=== PATIENT | female | born 1935 | race Caucasian/White ===

== ENCOUNTER 2025-02-28 14:15 | Outpatient (AMB) | payer MEDICARE, OTHER, SELFPAY ==
--- NOTE | 2025-02-28 14:17 | AM.OFFWIN_ITS ---
Intake Vital Signs 02/28/25 14:18 Weight 127 lb BP 130/78 Blood Pressure Location Lt brachial Pulse 69 Pulse Source Pulse Oximeter Pulse Oximetry (%) 94 Oxygen Delivery Method Room Air Intake Visit Reasons: EP-b/l hands pain, rt foot mid toe Intake Note: Patient here for bilat hand/finger pain that has been present for a couple of weeks. Patient Tobacco Use Status: Never used Tobacco Allergies levofloxacin Adverse Reaction (Mild, Verified 02/28/25 14:20) joint pain HPI HPI Comments History of Present Illness Details History of Present Illness - The patient is an 89-year-old female p resenting with pain and swelling in mutliple fingers of both hands and right foot has one toe wiht joint pain. Patient thinks this is possibly indicative of gout. Initially noted during a vacation, the pain was localized to one toe but improved spontaneously after three days. She continues to experience mild toe pain without associated redness or swelling. - She inquires about uric acid levels as a diagnostic consideration for gout and reports taking naproxen daily which provides symptomatic relief. She researched on the internet and has a strong suspicion for gout. - Today, she denies significantly red, s wollen joints. - She has been taking Naproxen ATC and t ook it today. - The patient mentions her fingers appea r mildly swollen intermittently but without severe discomfort or acute impairment, and she seeks clarification on whether these symptoms suggest chronic gout or arthritis. Physical Exam General: Cooperative, healthy appearing, comfortable, no acute distress and well developed Orientation: Patient oriented x3 Limitations: No limitations Head: Normal to inspection Ears: Hearing grossly normal bilaterally Nose: Normal External nose present Face and sinus: Normal facial exam Eyes: Appearance normal, both eyes and all related structures Neck: Normal visual inspection and Yes full ROM Respiratory: Normal respiratory effort and able to speak in complete sentences. Skin: No rashes or lesions noted Neuro: Patient oriented x3 Extremities: Heberdon's and bouchards nodes on multiple bilateral fingers; no erythema or warmth noted, ROM without pain PFSH Social History Patient Tobacco Use Status: Never used Tobacco Review of Systems Const All systems reviewed & are unremarkable except as noted in HPI and below Physical Exam Vital Signs: Last Vital Signs Pulse 69 02/28/25 14:18 BP 130/78 02/28/25 14:18 Pulse Ox 94 02/28/25 14:18 Oxygen Delivery Method Room Air 02/28/25 14:18 Assessment & Plan Assessment & Plan (1) Joint pain: Code(s): M25.50 - Pain in unspecified joint Qualifiers: Joint pain location: hand Laterality: bilateral Qualified Code(s): M25.541 - Pain in joints of right hand; M25.542 - Pain in joints of left hand Plan: Considering the present symptomatology, osteoarthritis is suspected more than gout, although uric acid testing will confirm or eliminate gout as a possibility as patient is very concerned and this will put her mind at ease. Patient has labs scheduled for next week so she will get this test done with those tests. The patient reports consistent improvement with daily naproxen use; therefore, it's recommended that her naproxen usage stop and transitions to as-needed, post-evaluation of symptoms after a trial of discontinuation. The lack of classic gout symptoms diminishes the likelihood of acute gout. Patient was informed and verbally consented to the use of an ambient scribe for clinic note documentation during this visit. Orders: Orders Uric Acid Today M25.50 - Pain in unspecified joint Coding Level of Care Code Est Pt Level 3 (98464) Diagnoses Arthralgia of both hands M25.541; M25.542 Joint pain location: hand Laterality: bilateral
[2025-02-28 14:18] VITALS: BP 130/78; PULSE 69; O2SAT 94
--- OUTSIDE RECORDS SUMMARY | 2025-02-28 17:06 | XMS_ITS | Continuity of Care Document ---
Author Organization [place] - [facility], [facility] Address [address] [place] [address] Assessment Encounter Date Assessment Date Assessment LastModified by Organization Details LastModified Time 02/28/2025 02/28/2025 Cerumen removed bilaterally, which patient tolerated well. Otologic exam otherwise unremarkable. Patient complains of hearing loss. Otologic exam unrevealing. Audiometric testing obtained today and reviewed with patient demonstrates bilateral neurosensory hearing loss, affecting the frequencies of human speech, with resultant decreased speech discrimination. Reviewed with patient hearing loss is amenable to hearing aids; recommend continued binaural amplification with updated settings. 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 Recommend annual audiometric testing, sooner with perceived change in hearing or lack of improvement with new hearing aid settings. All questions were answered. [email or web address] Not available 02/28/2025 11:48:41 Plan of Treatment Reminders Order Date Submit Date Provider Last Modified By Organization Details Last Modified Time Details Appointments Hearing Test 2024 11:00A M Hearing Test Not available Not available Not available Hearing Test 2024 11:14A M GABRIELA WALSH, JACK Not available Not available Not available Establish ed 15 2024 11:30A M YVETTE PINEDA PA-C Not available Not available Not available Establish ed 15 2024 02:00P M GUILLERMO DAUGHERTY PA-C Not available Not available Not available Lab None recorded. Referral None recorded. Procedures None recorded. Surgeries None recorded. Imaging None recorded. Medication Orders None recorded. Patient TargetsNo targets recorded. Patient InstructionsNo instructions recorded. Reason for Referral None Reported. Results Created Date Observation Date Name Description Value Unit Range Abnormal Flag Note LastModifiedBy Organization Detail LastModifiedTime 02/29/20 25 audio gram No observ ation record ed. BARCODE Not Available 2024 13:16:30 Result Notes None recorded. Problems Name Problem SNOMED Code Status Onset Date Resolution Date Notes Provider Name and Address Organization Details Recorded Time Dysphonia 48942219 Active 2021 Hoarsene ss; Note: Date Diagnose d: 2 9:47 AM (R49.0) Not Available [facility] 4 03:09:54 Chronic laryngiti s 00132261 Active 2021 Chronic laryngit is; Note: Date Diagnose d: 2 9:47 AM (J37.0) Not Available [facility] 4 03:09:53 Sensorine ural hearing loss of bilateral ears 926507848 Active 2024 Margarita rivera [place] - [facility] 5 11:15:11 Impacted cerumen of bilateral ears 050685200628 9108 Active 2024 YVETTE PINEDA PA-C [address] [place] [address], [address] , [facility] - [facility] 5 11:47:32 Problem Notes None recorded. Procedures Surgical History Date Name Laterality Status Provider Name and Address Organization Details Recorded Time 5 Comp Audio with Tymps (91022 & 59385) completed Margarita Richter [place] - [facility] 02/28/2025 11:15:10 5 Cerumen removal without microscope bilat completed YVETTE PINEDA PA-C [address] [place] [address], [place], [address], [facility] - [facility] 02/28/2025 11:36:03 Imaging Results None recorded. Procedure Notes None recorded. Medical Equipment None Reported. Allergies Allergen ID Allergen Name Allergen Category Reaction Reaction Severity Criticality Documentation Date Start Date Code Code System Note Provider Name and Address Organization Details Recorded Time 871116 levofloxa jean-claude medicatio n other Not available Not available 03/21/2024 82548 RxNorm React ion: Unkno wn; Not Available [facility] 4 01:19:29 Medications Name Sig Start Date Stop Date Status Note LastModified by Organization Details LastModified Time losartan 50 mg tablet TAKE 1 TABLET BY MOUTH EVERY DAY active Not Available Not Available No t Available azithromyc in 250 mg tablet active Medicatio n ID: [id number] Br and Name: azithromy jean-claude Send Method: E-Prescri bed Subs Allowed: subs OK Medica tionGener icName: azithromy jean-claude Not Available Not Available Not Available alendronat e 70 mg tablet active Medicatio n ID: [id number] Br and Name: alendrona te Send Method: E-Prescri bed Subs Allowed: subs OK Medica tionGener icName: alendrona te Not Available Not Available Not Available amoxicilli n 500 mg tablet active Medicatio n ID: [id number] Br and Name: amoxicill in Send Method: E-Prescri bed Subs Allowed: subs OK Medica tionGener icName: amoxicill in Not Available Not Available Not Available losartan 50 mg-hydroch lorothiazi de 12.5 mg tablet active Medicatio n ID: [id number] Br and Name: losartan- hydrochlo rothiazid e Send Method: E-Prescri bed Subs Allowed: subs OK Medica tionGener icName: losartan- hydrochlo rothiazid e Not Available Not Available Not Available neomycin 3.5 mg/g-polym yxin B 10,000 unit/g-dex ameth 0.1 % eye oint APPLY TO AFFECTED EYES EVERY NIGHT AT BEDITME active Not Available Not Available No t Available Restasis 0.05 % eye drops in a dropperett e INSTILL 1 DROP INTO BOTH EYES TWICE A DAY active Not Available Not Available No t Available Vitals Date Recorded Body height Body mass index (BMI) Body weight Provider Name and Address Organization Details Last Updated DateTime 02/28/2025 152.4 cm 23.8 kg/m2 45220.27 g Johana Estevez [place] - [facility] 02/28/2025 11:23:18 Social History None recorded. Functional Status None recorded. Mental Status None recorded. Family History Nothing Reported. Medical History No medical history recorded. Gynecological HistoryNo gynecological history recorded. Obstetrics History GPAL:G 0 P 0 0 0 0 Past Encounters Encounter ID Performer Location Encounter Start Date Encounter Closed Date Diagnosis/Indication Diagnosis SNOMED-CT Code Diagnosis ICD10 Code Diagnosis Note [id number] ARELIS RIVERA MD [facility] of [address] [address] 02/28/2025 10:37:07 02/28/2025 11:39:38 Impacted cerumen of bilateral ears 3517621887 801281 H61.23 Sensorineu ral hearing loss of bilateral ears 283635394 H90.3 [id number] JACK THAYER [facility] of [facility] [address] [place] [address] 02/28/2025 11:14:22 02/28/2025 11:16:28 Sensorineural hearing loss of bilateral ears 855298062 H90.3 [facility]{{Norm al Normal through 2 kHz Mild* Moderate M oderately- severe Sev ere Profou nd}} {{hearing hearing. s loping to a mild slopi ng to a moderate s loping to moderately severe* sl oping to severe slo ping to profound f lat high frequency low frequency mid frequency cookie bite arias curve}} {{with sen sorineural hearing loss with* cond uctive hearing loss with mixed hearing loss with}} {{excellen t* good fa ir poor no measurable }} word recognitio n.Left ear:{{Norm al Normal through 2 kHz Mild* Moderate M oderately- severe Sev ere Profou nd}} {{hearing hearing. s loping to a mild slopi ng to a moderate s loping to moderately severe* sl oping to severe slo ping to profound f lat high frequency low frequency mid frequency cookie bite arias curve}} {{with sen sorineural hearing loss with* cond uctive hearing loss with mixed hearing loss with}} {{excellen t* good fa ir poor no measurable }} word recognitio n. Tympanomet ry:Right Ear:{{Type A* Type A with rounded peak Type A with double peak Type As Type As with rounded peak Type Ad Type C Type C, shallow & rounded peak Type B Type B with large volume Cou ld not maintain a hermetic seal}}Left Ear:{{Type A Type A with rounded peak Type A with double peak Type As Type As with rounded peak Type Ad Type C* Type C, shallow & rounded peak Type B Type B with large volume Cou ld not maintain a hermetic seal}} Health Concerns Section Related Observation LastModified by Organization Detai ls LastModified Time None Recorded Concern Status LastModified by Organization Details LastModified Time None Recorded Payers Encounter Date Sequence Insurance Name Policy Number Policy Virgen Covered Member ID Virgen Member ID Guarantor Name 02/28/2025 1 [place] [facility] Cinda Smith Tha [id number] 4 Cinda Almazan 02/28/2025 2 [facility] INDEMNITY PLAN - [facility] [id number] Cinda Almazan [id number] Cinda Almazan Notes Date Note Type Note Provider Name and Address Organization Details Recorded Time 02/28/2025 text/html 89 year old shanna antony presents for evaluation of the ears and hearing. Hearing seems to have changed. Hearing aids don't help as much as they used to. They are about a year old, replacement for a lost pair. She does not think she has had audiometric testing since being fitted for them 7 years ago. There is no otalgia nor otorrhea ARELIS RIVERA MD [address] [place] [address], [address], [place] - [facility] 02/28/2025 11:54:27 OBGyn Episode No OBEpisode recorded.
--- OUTSIDE RECORDS SUMMARY | 2025-02-28 17:07 | XMS_ITS | Continuity of Care Document ---
Author Organization [place] - [facility], [facility] Address [address] [place] [address] Assessment Encounter Date Assessment Date Assessment LastModified by Organization Details LastModified Time 02/28/2025 02/28/2025 Follow up with referring provider. [email or web address] Not available 02/28/2025 11:15:10 Plan of Treatment Reminders Order Date Submit Date Provider Last Modified By Organization Details Last Modified Time Details Appointments Hearing Test 2024 11:00A M Hearing Test Not available Not available Not available Hearing Test 2024 11:14A M JACK THAYER Not available Not available Not available Establish [...] and Address Organization Details Recorded Time Dysphonia 27302651 Active 2021 Hoarsene ss; Note: Date Diagnose d: 2 9:47 AM (R49.0) Not Available [facility] 4 03:09:54 Chronic laryngiti s 17275765 Active 2021 Chronic laryngit is; Note: Date Diagnose d: 2 9:47 AM (J37.0) Not Available [facility] 4 03:09:53 Sensorine ural hearing loss of bilateral ears 236627247 Active 2024 Margarita rivera [place] - [facility] 5 11:15:11 Impacted cerumen of bilateral ears 014880224249 9108 Active 2024 YVETTE PINEDA PA-C [address] [facility],[place] [address], [place], [address] , [facility] - [facility] [place] 5 11:47:32 Problem Notes None recorded. Procedures Surgical History Date Name Laterality Status Provider Name and Address Organization Details Recorded Time 5 Comp Audio with Tymps (12829 & 78920) completed Margarita Richter [facility] 02/28/2025 11:15:10 5 Cerumen removal without microscope bilat completed YVETTE PINEDA PA-C [address] [facility],[place] [address], [place], [address], [facility] 02/28/2025 11:36:03 Imaging Results None recorded. Procedure Notes None recorded. Medical Equipment None Reported. Allergies Allergen ID Allergen Name Allergen Category Reaction Reaction Severity Criticality Documentation Date Start Date Code Code System Note Provider Name and Address Organization Details Recorded Time 530342 levofloxa jean-claude medicatio n other Not available Not available 03/21/2024 76782 RxNorm React ion: Unkno wn; Not Available [facility] 4 01:19:29 Medications Name Sig Start Date Stop Date Status Note LastModified by Organization Details LastModified Time losartan 50 mg tablet TAKE 1 TABLET BY MOUTH EVERY DAY active Not Available Not Available No t Available azithromyc in 250 mg tablet active Medicatio n ID: [id number] Br and Name: azithromy jean-claude Send Method: E-Prescri bed Subs Allowed: subs OK Medica tionGener icName: azithromy jean-claude Not Available Not Available Not Available alendronat e 70 mg tablet active Medicatio n ID: [id number] Br and Name: alendrona te Send Method: E-Prescri bed Subs Allowed: subs OK Medica tionGener icName: alendrona te Not Available Not Available Not Available amoxicilli n 500 mg tablet active Medicatio n ID: [id number] Br and Name: amoxicill in Send Method: E-Prescri bed Subs Allowed: subs OK Medica tionGener icName: amoxicill in Not Available Not Available Not Available losartan 50 mg-hydroch lorothiazi de 12.5 mg tablet active Medicatio n ID: [id number] Br and Name: losartan- hydrochlo rothiazid e [...] Updated DateTime 02/28/2025 152.4 cm 23.8 kg/m2 40871.27 g Johana Estevez [place] - [facility] 02/28/2025 11:23:18 Social History None recorded. Functional Status None recorded. Mental Status None recorded. Family History Nothing Reported. Medical History No medical history recorded. Gynecological HistoryNo gynecological history recorded. Obstetrics History GPAL:G 0 P 0 0 0 0 Past Encounters Encounter ID Performer Location Encounter Start Date Encounter Closed Date Diagnosis/Indication Diagnosis SNOMED-CT Code Diagnosis ICD10 Code Diagnosis Note [id number] ARELIS RIVERA MD [facility] of [address] [address] 02/28/2025 10:37:07 02/28/2025 11:39:38 Impacted cerumen of bilateral ears 9523814451 226728 H61.23 Sensorineu ral hearing loss of bilateral ears 885865560 H90.3 [id number] JACK THAYER [facility] of [address] [place] [address] 02/28/2025 11:14:22 02/28/2025 11:16:28 Sensorineural hearing loss of bilateral ears 865967560 H90.3 Audiologic al evaluation results:Ri t ear:{{Norm al Normal through 2 kHz Mild* [...] Concerns Section Related Observation LastModified by Organization Damion ls LastModified Time None Recorded Concern Status LastModified by Organization Details LastModified Time None Recorded Payers Encounter Date Sequence Insurance Name Policy Number Policy Virgen Covered Member ID Virgen Member ID Guarantor Name 02/28/2025 1 [place] [employer] Cinda Almazan [id number] 4 Cinda Almazan 02/28/2025 2 [facility] [id number] Cinda Almazan [id number] Cinda Smith Tha Notes Date Note Type Note Provider Name [...] no otalgia nor otorrhea ARELIS RIVERA MD [address] [place] [address], [place], [address], [place] - [facility] 02/28/2025 11:54:27 OBGyn Episode No OBEpisode recorded.
--- OUTSIDE RECORDS SUMMARY | 2025-02-28 17:07 | XMS_ITS | Data Portability ---
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 Recommend annual audiometric testing, sooner with perceived change in hearing or lack of improvement with new hearing aid settings. All questions were answered. [email or web address] Not available 02/28/2025 11:48:41 02/28/2025 02/28/2025 Follow up with referring provider. [...] and Address Organization Details Recorded Time Dysphonia 75208796 Active 2021 Hoarsene ss; Note: Date Diagnose d: 2 9:47 AM (R49.0) Not Available [facility] 4 03:09:54 Chronic laryngiti s 41550157 Active 2021 Chronic laryngit is; Note: Date Diagnose d: 2 9:47 AM (J37.0) Not Available [facility] 4 03:09:53 Sensorine ural hearing loss of bilateral ears 240267620 Active 2024 Margarita rivera [place] - [facility] [place] 5 11:15:11 Impacted cerumen of bilateral ears 704277131487 9108 Active 2024 YVETTE PINEDA PA-C [address] [place] [address], [place], [address] , [facility] - [facility] 5 11:47:32 Problem Notes None recorded. Procedures Surgical History Date Name Laterality Status Provider Name and Address Organization Details Recorded Time 5 Comp Audio with Tymps (54446 & 64163) completed Margarita Richter [place] - [facility] 02/28/2025 11:15:10 Cerumen removal without microscope bilat completed YVETTE PINEDA PA-C [address] [place] [address],[place] [address], [place], [address], [facility] - [facility] 02/28/2025 11:36:03 Imaging Results Imaging Date Name Status LastModified by Organiz ation Details LastModified Time 02/28/2025 audiogram completed BARCODE Information no t available 02/28/2025 13:16:30 Procedure Notes None recorded. Medical Equipment None Reported. Allergies Allergen ID Allergen Name Allergen Category Reaction Reaction Severity Criticality Documentation Date Start Date Code Code System Note Provider Name and Address Organization Details Recorded Time 321819 levofloxa jean-claude medicatio n other Not available Not available 03/21/2024 58479 RxNorm React ion: Unkno wn; Not Available [facility] 4 01:19:29 Medications Name Sig Start Date Stop Date Status Note LastModified by Organization Details LastModified Time losartan 50 mg tablet TAKE 1 TABLET BY MOUTH EVERY DAY active Not Available Not Available No t Available azithromyc in 250 mg tablet active Medicatio n ID: [id number] Br and Name: azithromy jean-claude Send Method: E-Prescri bed Subs Allowed: subs OK Medica tionGener icName: azithromy jean-claude Not Available Not Available Not Available alendronat e 70 mg tablet active Medicatio n ID: [id number] Br and Name: alendrona te Send Method: E-Prescri bed Subs Allowed: subs OK Medica tionGener icName: alendrona te Not Available Not Available Not Available amoxicilli n 500 mg tablet active Medicatio n ID: [id number] Br and Name: amoxicill in Send Method: E-Prescri bed Subs Allowed: subs OK Medica tionGener icName: amoxicill in Not Available Not Available Not Available losartan 50 mg-hydroch lorothiazi de 12.5 mg tablet active Medicatio n ID: [id number] Br and Name: losartan- hydrochlo rothiazid e [...] Updated DateTime 02/28/2025 152.4 cm 23.8 kg/m2 21044.27 g Johana Estevez [place] - [facility] 02/28/2025 11:23:18 Social History None recorded. Functional Status None recorded. Mental Status None recorded. Family History Nothing Reported. Medical History No medical history recorded. Gynecological HistoryNo gynecological history recorded. Obstetrics History GPAL:G 0 P 0 0 0 0 Past Encounters Encounter ID Performer Location Encounter Start Date Encounter Closed Date Diagnosis/Indication Diagnosis SNOMED-CT Code Diagnosis ICD10 Code Diagnosis Note [id number] ARELIS RIVERA MD [facility] of [address] [address] 02/28/2025 10:37:07 02/28/2025 11:39:38 Impacted cerumen of bilateral ears 5820015547 060118 H61.23 Sensorineu ral hearing loss of bilateral ears 590684364 H90.3 [id number] JACK THAYER [facility] of [address] [address] 02/28/2025 11:14:22 02/28/2025 11:16:28 Sensorineural hearing loss of bilateral ears 727211883 H90.3 Audiologic al evaluation results:Ri ght ear:{{Norm al Normal through 2 kHz Mild* [...] by Organization Details LastModified Time None Recorded Advance Directives Directive None Recorded Payers Encounter Date Sequence Insurance Name Policy Number Policy Virgen Covered Member ID Virgen Member ID Guarantor Name 02/28/2025 1 [place] [facility] Cinda Almazan [id number] Cinda Almazan 02/28/2025 2 [employer] [id number] Cinda Almazan [id number] Cinda Almazan 02/28/2025 1 [place] [facility] Cinda S Tha [id number] 4 Cinda S Tha 02/28/2025 2 [facility] INDEMNITY PLAN - UNICARE [id number] Cinda S Tha [id number] Cinda Almazan Notes Date Note Type Note [...] no otalgia nor otorrhea ARELIS RIVERA MD [address] [place] [address], [phone], [facility] - [facility] 02/28/2025 11:54:27 OBGyn Episode No OBEpisode recorded.
--- OUTSIDE RECORDS SUMMARY | 2025-02-28 17:07 | XMS_ITS | Clinical Summary ---
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 Role Phone Unavailable Primary Care Provider Unavailabl e Social History Tobacco Use Types Packs/Day Years Used Date Smoking Tobacco: Never Assessed Comments Unknown Sex and Gender Information Value Date Recorded Sex Assigned at Not on file Legal Sex Female 7:15 PM EST Gender Identity Not on file Sexual Orientation Not on file Plan of Treatment Health Maintenance Due Date Last Done Comments Pneumococcal Vaccine: 50+ Years (1 of 1 - PCV) 1985 Zoster Vaccines (1 of 2) 1985 RSV Immunization Adult Patients (1 - 1-dose 75+ series) 2010 Cholesterol Screening (Lipid Panel) 10/10/2022 Depression Screening 10/10/2022 Falls Risk Assessment 10/10/2022 Medicare Annual Wellness Visit 10/10/2022 Osteoporosis Screening (Bone Density Screening) 10/10/2022 Social Influencers of Health Screening 10/10/2022 COVID-19 Vaccine ( - season) 2024 Influenza Vaccine (Season Ended) 2025 08/31/2022, 08/11/2021, 08/13/2020, Additional history exists DTaP,Tdap,and Td Vaccines (2 - Td or Tdap) 05/02/2028 05/02/2018 HIB Vaccines Aged Out No longer eligi ble based on patient's age to complete this topic HPV Vaccines Aged Out No longer eligi ble based on patient's age to complete this topic Hepatitis A Vaccines Aged Out No long er eligible based on patient's age to complete this topic Hepatitis B Vaccines Aged Out No long er eligible based on patient's age to complete this topic IPV Vaccines Aged Out No longer eligi ble based on patient's age to complete this topic MMR Vaccines Aged Out No longer eligi ble based on patient's age to complete this topic Meningococcal ACWY Vaccine Aged Out N o longer eligible based on patient's age to complete this topic Meningococcal B Vaccine Aged Out No l onger eligible based on patient's age to complete this topic RSV Immunization Patients Under 20 months Aged Out No longer eligible based on patient's age to complete this topic Varicella Vaccines Aged Out No longer eligible based on patient's age to complete this topic
== END 2025-02-28 15:46 | disposition home or self-care (01) ==
PROVIDERS: Visit Provider Physician Assistant
DX: M25.541 Pain in joints of right hand (principal); M25.542 Pain in joints of left hand

== ENCOUNTER → 2025-02-28 14:15 | Outpatient (BNVA) | payer MEDICARE, OTHER, SELFPAY | PROVIDERS: Visit Provider Physician Assistant | DX: M25.541 Pain in joints of right hand (principal); M25.542 Pain in joints of left hand | CPT/HCPCS: 99212 ==

== ENCOUNTER 2025-03-15 10:45 | Outpatient (AMB) | payer MEDICARE, OTHER, SELFPAY ==
--- NOTE | 2025-03-15 10:59 | MHC.PC.OV ---
Vital Signs 03/15/25 11:03 Height 4 ft 11.8 in Weight 121 lb BMI 23.8 BP 136/76 Blood Pressure Location Lt brachial Position Sitting Respiration 18 Pulse 99 Pulse Source Pulse Oximeter Pulse Oximetry (%) 99 Oxygen Delivery Method Room Air Intake Visit Reasons: New patient visit ok per Dr. Mcnulty Intake Note: Pt is here today for New patient visit. Allergies levofloxacin Adverse Reaction (Mild, Verified 03/15/25 11:06) joint pain Medication List - Last Reconciled 03/15/25 by Dary Mcnulty MD cyclosporine 0.05% (Restasis) drps ophthalmic (eye) losartan 50 mg PO DAILY Tobacco use date assessed: 03/15/25 Fall risk assessment: No Falls in past year Last assessed Fall Risk: 03/15/25 Dental Screening Dental Screen Date: 03/15/25 Did you have a dental visit in the last 12 months?: Yes Did you have a dental problem in the last 6 months where you did not have access to dental care?: No Was dental information given to patient?: Patient has dentist HPI New patient visit ok per Dr. 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 Past medical history includes hypertension controlled on losartan. Patient lives independently in a house. She is physically active taking care of her house and yard [facility] Medical History (Updated 03/15/25 @ 14:59 by Dary Mcnulty MD) Osteoporosis HTN (hypertension) Hyperlipidemia Surgical History (Updated 03/15/25 @ 11:15 by HANANE Owen) H/O colonoscopy Hx of external ear surgery History of bunionectomy History of eyelid surgery History of cystocele repair Hx of cataract surgery History of bilateral knee replacement Family History (Updated 03/15/25 @ 11:14 by HANANE Owen) Father Diabetes Hypertension Mother Hypertension Social History (Updated 03/15/25 @ 11:27 by Dary Mcnulty MD) Household Members Other:: , lives alone, son in [facility], son in [place], Housing: House Patient Tobacco Use Status: Never used Tobacco e-Cigarette/Vaping Use: Never Used service: No Current occupational status: retired Cognitive needs: No Hearing needs: No Vision needs: No Questionnaire PHQ-9 Over the last 2 weeks, how often have you been bothered by any of the following problems? 1. Little interest or pleasure in doing things: not at all 2. Feeling down, depressed, or hopeless: not at all 3. Trouble falling or staying asleep, or sleeping too much: not at all 4. Feeling tired or having little energy: not at all 5. Poor appetite or overeating: not at all 6. Feeling bad about yourself - or that you are a failure or have let yourself or your family down: not at all 7. Trouble concentrating on things, such as reading the newspaper or watching television: not at all 8. Moving or speaking so slowly that other people could have noticed. Or the opposite - being so fidgety or restless that you have been moving around a lot more than usual: not at all 9. Thoughts that you would be better off or of hurting yourself in some way: not at all Total score: 0 Depression Screening Interpretation: Negative Depression Screening Done: Yes 11151 - PHQ-9 Billing: Yes Source: Developed by Drs. Viet Hogue, Beatrice Benitez, Linus Patel and colleagues, with an educational charbel from [employer]. Thrive Questionnaire Date Thrive assessed: 03/15/25 I am a: Patient What is your living situation today?: I have a steady place to live Within the past 12 months, did the food you bought not last and you didn't have the money to get more?: Never true Within the past 12 months, did you worry whether your food would run out before you got money to buy more?: Never true Do you have trouble paying for medicines?: No Do you have trouble getting transportation to medical appointments?: No Do you have trouble paying your heating and electricity bill?: No Do you have trouble taking care of your child, family member or friend?: No Do you have trouble with day-to-day activities such as bathing, preparing meals, shopping, managing finances, etc.?: No Are you currently unemployed and looking for a job?: No Are you interested in more education?: No Please select the resources that you would like help with: None THRIVE Score: 0 AUDIT C Alcohol Use Questionnaire (AUDIT-C) 1. How often do you have a drink containing alcohol?: Never 3. How often do you have six or more drinks on one occasion?: Never Total Score: 0 YOKO-7 AMB Questionnaire YOKO-7 Date YOKO - 7 assessed: 03/15/25 Feeling nervous, anxious, or on edge: 0 = Not at all Not being able to stop or control worryin = Not at all Worrying too much about different things: 0 = Not at all Trouble relaxin = Not at all Being so restless that it is hard to sit still: 0 = Not at all Becoming easily annoyed or irritable: 0 = Not at all Feeling afraid as if something awful might happen: 0 = Not at all Total YOKO-7 score (0-4 normal; 5-9 mild; 10-14 moderate; 15-21 severe): 0 Source: Developed by Drs. Viet Hogue, Beatrice Benitez, Linus Patel and colleagues, with an educational charbel from [employer]. YOKO-7 Assessment Billing YOKO-7 Assessment Tool: YOKO-7 Assessment 86878 Review of Systems Const All systems reviewed & are unremarkable except as noted in HPI and below Reports no additional complaints Eyes Reports no additional complaints ENT Reports no additional complaints Card Reports no additional complaints Resp Reports no additional complaints GI Reports no additional complaints Reports no additional complaints Musc Reports no additional complaints Physical exam (Primary Care) Vital Signs: Last Vital Signs Pulse 99 03/15/25 11:03 Resp 18 03/15/25 11:03 BP 136/76 03/15/25 11:03 Pulse Ox 99 03/15/25 11:03 Oxygen Delivery Method Room Air 03/15/25 11:03 BMI result Body Mass Index 23.8 Tobacco/Smoking Status: Tobacco use Status Tobacco use date assessed 03/15/25 03/15/25 11:17 Patient Tobacco Use Status Never used Tobacco 03/15/25 11:27 e-Cigarette/Vaping Use Never Used 03/15/25 11:27 PHQ-9: PHQ-9 Score PHQ-9: Total score 0 03/15/25 11:33 Depression Screening Interpretation: Negative Thrive Assessment: Date of Thrive Assessment Date Thrive assessed 03/15/25 03/15/25 11:33 Const General: no acute distress HENMT Head: Yes normal to inspection General nose exam: Normal external nose present Face and sinus: Yes normal facial exam Mouth: Normal oral and palatal mucosa present Throat: Yes posterior oropharynx normal Eyes General: appearance normal, both eyes and all related structures Neck Neck: Yes no lymphadenopathy and Yes supple Resp Effort & Inspection: normal respiratory effort Auscultation: clear to auscultation bilaterally Cardio Rhythm: regular rhythm Heart sounds: S1 normal heart sound present and S2 normal heart sound present GI Inspection: Yes normal to inspection Palpation (GI): Soft to palpation Percussion: Yes normal to percussion Auscultation: normal bowel sounds Immunizations pneumoc 20-franklin conj-dip cr(PF) 0.5 mL IM syringe Performing Provider: Dary Mcnulty MD Performing Location: [facility] Administered by: HANANE Owen on 03/15/25 11:44 Dose Route Admin Location Dispensed Lot Number Expiration Date ND Club Former 0.5 mL IM Left Deltoid 0.5 mL [id number] 02/05/26 8276-5368-41 WYETH/PFIZER VIS Given Date VIS Provided VIS Publication Date 03/15/25 Single Vaccine 21 Eligibility Eligibility Date Funding Source Not [facility] Eligible 03/15/25 Private Coding Level of Care Code New Pt Level 4 (05991) Diagnoses HTN (hypertension) I10 Hyperlipidemia E78.5 Osteoporosis M81.0 Vitamin D deficiency E55.9 Additional Codes YOKO-7 Assessment Billing - YOKO-7 Assessment Tool: YOKO-7 Assessment 96451 ([id number]) PHQ-9 - 56653 - PHQ-9 Billing: Yes ([id number]) Assessment & Plan Assessment & Plan (1) HTN (hypertension): Code(s): I10 - Essential (primary) hypertension Category: Medical Plan: Continue losartan (2) Hyperlipidemia: Code(s): E78.5 - Hyperlipidemia, unspecified Category: Medical Plan: Continue low-cholesterol diet return for fasting blood work (3) Osteoporosis: Comment: last DEXA 05/2018, took Fosamax for 6 yrs, stopped 2023 Code(s): M81.0 - Age-related osteoporosis without current pathological fracture Category: Medical Plan: Continue vitamin-D supplement weightbearing exercise obtain old records (4) Vitamin D deficiency: Code(s): E55.9 - Vitamin D deficiency, unspecified Category: Medical Plan: Continue vitamin-D. Orders: Orders Pneumococcal 20 Immunization Today Z23 - Encounter for immunization Medications: New losartan 50 mg PO DAILY 90 tabs 3RF
[2025-03-15 11:03] VITALS: BP 136/76; PULSE 99; RESP 18; O2SAT 99; BMI 23.8
--- OUTSIDE RECORDS SUMMARY | 2025-03-15 12:10 | XMS_ITS | Clinical Summary ---
Author Organization [facility] it Address [address] [place] [phone] Care Team Providers Care Parent Partner Name Role Phone Unavailable Primary Care Provider [...]
--- OUTSIDE RECORDS SUMMARY | 2025-03-15 12:10 | XMS_ITS | Data Portability ---
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 Recommend annual audiometric testing, sooner with perceived change in hearing or lack of improvement with new hearing aid settings. All questions were answered. [email or web address] Not available 02/28/2025 11:48:41 02/28/2025 02/28/2025 Follow up with referring provider. [email or web address] Not available 02/28/2025 11:15:10 Plan of Treatment Reminders Order Date Submit Date Provider Last Modified By Organization Details Last Modified Time Details Appointments Establish ed 15 2024 02:00P M GUILLERMO [...] and Address Organization Details Recorded Time Dysphonia 14514436 Active 2021 Hoarsene ss; Note: Date Diagnose d: 2 9:47 AM (R49.0) Not Available [facility] 4 03:09:54 Chronic laryngiti s 11043073 Active 2021 Chronic laryngit is; Note: Date Diagnose d: 2 9:47 AM (J37.0) Not Available [facility] 4 03:09:53 Sensorine ural hearing loss of bilateral ears 618607577 Active 2024 Margarita rivera [place] - [facility] 5 11:15:11 Impacted cerumen of bilateral ears 581751951501 9108 Active 2024 YVETTE PINEDA PA-C [address] [place] [address],[place] [address], [place], [address] , [facility] - [facility] 5 11:47:32 Problem Notes None recorded. Procedures Surgical History Date Name Laterality Status Provider Name and Address Organization Details Recorded Time 5 Comp Audio with Tymps - 94440 & 59409 completed Margarita Richter [place] - [facility] 02/28/2025 11:15:10 5 Cerumen removal without microscope bilat completed YVETTE PINEDA PA-C [address] [place] [address],[place] [address], [place], [address], [facility] - [facility] 02/28/2025 11:36:03 Imaging Results Imaging Date Name Status LastModified by Organiz ation Details LastModified Time 02/28/2025 audiogram completed BAR[facility] Information no t available 02/28/2025 13:16:30 Procedure Notes None recorded. Medical Equipment None Reported. Allergies Allergen ID Allergen Name Allergen Category Reaction Reaction Severity Criticality Documentation Date Start Date Code Code System Note Provider Name and Address Organization Details Recorded Time 665359 levofloxa jean-claude medicatio n other Not available Not available 03/21/2024 49843 RxNorm React ion: Unkno wn; Not Available [facility] 4 01:19:29 Medications Name Sig Start Date Stop Date Status Note LastModified by Organization Details LastModified Time losartan 50 mg tablet TAKE 1 TABLET BY MOUTH EVERY DAY active Not Available Not Available No t Available azithromyc in 250 mg tablet active Medicatio n ID: [id number] Br and Name: azithromy jean-claude Send Method: E-Prescri bed Subs Allowed: subs [place] Medica tionGener icName: azithromy jean-claude Not Available Not Available Not Available alendronat e 70 mg tablet active Medicatio n ID: [id number] Br and Name: alendrona te Send Method: E-Prescri bed Subs Allowed: subs [place] Medica tionGener icName: alendrona te Not Available Not Available Not Available amoxicilli n 500 mg tablet active Medicatio n ID: [id number] Br and Name: amoxicill in Send Method: E-Prescri bed Subs Allowed: subs [place] Medica tionGener icName: amoxicill in Not Available Not Available Not Available losartan 50 mg-hydroch lorothiazi de 12.5 mg tablet active Medicatio n ID: [id number] Br and Name: losartan- hydrochlo rothiazid e [...] Updated DateTime 02/28/2025 152.4 cm 23.8 kg/m2 47380.27 g Johana Estevez [place] - [facility] 02/28/2025 11:23:18 Social History None recorded. Functional Status None recorded. Mental Status None recorded. Family History Nothing Reported. Medical History No medical history recorded. Gynecological HistoryNo gynecological history recorded. Obstetrics History GPAL:G 0 P 0 0 0 0 Past Encounters Encounter ID Performer Location Encounter Start Date Encounter Closed Date Diagnosis/Indication Diagnosis SNOMED-CT Code Diagnosis ICD10 Code Diagnosis Note [id number] YVETTE PINEDA PA-C [facility] [address] [place] [address] 02/28/2025 10:37:07 02/28/2025 11:39:38 Impacted cerumen of bilateral ears 0847838196 218401 H61.23 Sensorineu ral hearing loss of bilateral ears 298338024 H90.3 [id number] JACK THAYER [facility] [address] [place] [address] 02/28/2025 11:14:22 03/01/2025 14:22:16 Sensorineural hearing loss of bilateral ears 765031873 H90.3 Audiologic al evaluation results:Ri t ear:{{Norm [...] Recorded Advance Directives Directive None Recorded Payers Insurance Date Sequence Insurance Name Policy Number Policy Virgen Covered Member ID Virgen Member ID Guarantor Name 02/28/2025 1 [place]ICARE [place]: [facility] [employer] Cinda Almazan [id number] Cinda Smith Tha 02/28/2025 2 [facility] INDEMNITY PL[facility] - [facility] [id number] Cinda Smith Tha [id number] Cinda Almazan Notes Date Note Type Note [...] no otalgia nor otorrhea ARELIS RIVERA MD [address] [place] [address], [phone], [place] - [facility] 02/28/2025 11:54:27 OBGyn Episode No OBEpisode recorded.
--- OUTSIDE RECORDS SUMMARY | 2025-03-15 12:11 | XMS_ITS ---
Author Name [facility] Organization Unknown Encounters Encounter Type Encounter Reason Primary Diagnosis Location Date Ambulatory [facility] 09/05/2024 Care Team Organization Name Specialty Phone Email Start Date End Da te [facility] 2024
== END 2025-03-15 11:53 | disposition home or self-care (01) ==
PROVIDERS: Visit Provider Internal Medicine
DX: I10 Essential (primary) hypertension (principal); E78.5 Hyperlipidemia, unspecified; M81.0 Age-related osteoporosis without current pathological fracture; E55.9 Vitamin D deficiency, unspecified; Z23 Encounter for immunization

== ENCOUNTER → 2025-03-15 10:45 | Outpatient (BNVA) | payer MEDICARE, OTHER, SELFPAY | PROVIDERS: Visit Provider Internal Medicine | DX: I10 Essential (primary) hypertension (principal); Z23 Encounter for immunization; E78.5 Hyperlipidemia, unspecified; M81.0 Age-related osteoporosis without current pathological fracture; E55.9 Vitamin D deficiency, unspecified; Z79.899 Other long term (current) drug therapy | CPT/HCPCS: 90471; 90677; 96127; 99202 ==

== ENCOUNTER 2025-03-19 10:26 | Outpatient (REF) | payer MEDICARE, OTHER, SELFPAY ==
[2025-03-19 13:23] LABS: MANUAL DIFF FLAG NO
[2025-03-19 13:48] LABS: Basophils Percent Auto 0.7 % (0-2); Eosinophils Absolute Auto 0.1 X10*3/uL (0.0-0.4); Eosinophils Percent Auto 1.7 % (0-4); Hematocrit 42.7 % (37.0-47.0); Hemoglobin 13.9 g/dl (12.0-16.0); Imm Gran Abs Auto 0.02 X10*3/uL (0.00-0.03); Imm Gran Pct Auto 0.4 % (0.0-0.4); Mean Corpuscular HGB Conc 32.6 g/dl (31.0-35.0); Mean Corpuscular Hemoglobin 30.2 pg (27.0-33.0); Mean Corpuscular Volume 92.6 fL (80.0-98.0); Mean Platelet Volume 10.8 fL (9.4-12.3); Monocytes Absolute Auto 0.5 X10*3/uL (0.1-1.2); Neutrophils Absolute Auto 3.7 x10*3/uL (2.0-8.3); Neutrophils Percent Auto 69.2 % (45-73); Platelet Count 183 X10*3/uL (160-400); Red Blood Count 4.61 X10*6/uL (4.20-5.50); Red Cell Distribution Width 13.2 % (11.0-16.0); White Blood Count 5.4 X10*3/uL (4.8-10.8)
[2025-03-19 14:13] LABS: Uric Acid 3.8 mg/dL (2.4-5.7)
[2025-03-19 14:53] LABS: Alanine Aminotransferase 21 U/L (0-31); Albumin Level 4.1 g/dL (3.5-5.0); Alkaline Phosphatase 45 U/L (39-117); Anion Gap 10 (12-20); Aspartate Amino Transferase 36 U/L (5-31); Bilirubin Total 1.3 mg/dL (0.0-1.0); Blood Urea Nitrogen 22 mg/dL (9-16); Carbon Dioxide 28 mmol/L (22-29); Chloride 104 mmol/L (96-108); Cholesterol 184 mg/dL (<200); Estimated Glomerular Filt Rate > 60; Glucose Fasting 96 mg/dL (60-99); HDL Cholesterol 57 mg/dL (>40); LDL Cholesterol Calculated 113 mg/dL (<100); Potassium 3.9 mmol/L (3.3-5.1); Sodium 138 mmol/L (135-145); TSH reflex Free T4 2.09 uIU/mL (0.32-4.0); Total Protein 7.1 g/dL (6.5-8.0); Triglycerides 72 mg/dL (<150); Vitamin D 25-OH Total 75.3 ng/mL (>30)
== END 2025-03-19 10:27 | disposition home or self-care (01) ==
LOC: HO.HMGCLDS 10:26
PROVIDERS: Absent Provider Physician Assistant; PCP Internal Medicine; Visit Provider Internal Medicine
DX: E55.9 Vitamin D deficiency, unspecified (principal); E78.5 Hyperlipidemia, unspecified; M25.50 Pain in unspecified joint; M81.0 Age-related osteoporosis without current pathological fracture; I10 Essential (primary) hypertension
CPT/HCPCS: 36415; 80053; 80061; 82306; 84443; 84550; 85025